=== PATIENT | female | born 1970 ===

== ENCOUNTER → 2016-09-26 | Outpatient (CLI) | payer OTHER ==
[2016-09-26 09:09] LABS: Basophils % (A) 1 %; CH 31.3; Eosinophils # (A) 0.1 k/uL (0-0.7); Eosinophils % (A) 2 %; HCT 41.6 % (34.0-46.0); HDW 2.32; Luc # (Auto) 0.17; Luc % (Auto) 2; Lymphocytes % (A) 13 %; MCHC 33.6 g/dL (31.0-37.0); MCV 95.3 fL (80.0-100.0); Mean Platelet Volume 6.4; Monocytes # (A) 0.4 k/uL (0-1.0); Monocytes % (A) 6 %; Neutrophils # (A) 5.6 k/uL (1.3-7.7); Neutrophils % (A) 77 %; RBC 4.37 m/uL (3.80-5.40); WBC 7.2 k/uL (3.8-10.6); WBC (Perox) 7.59
== END | disposition home or self-care (01) ==
LOC: LABPAT 08:05
PROVIDERS: ATTEND Orthopaedic Surgery
DX: Z01.818 Encounter for other preprocedural examination (principal); G56.01 Carpal tunnel syndrome, right upper limb
CPT/HCPCS: 85025

== ENCOUNTER 2016-09-29 09:58 | Day surgery (SDC) | payer OTHER ==
[2016-09-28 08:21] VITALS: BMI 38.7
--- NOTE | 2016-09-28 09:51 | HP ---
DATE OF ADMISSION: CHIEF COMPLAINT: Right hand pain and numbness. HISTORY OF PRESENT ILLNESS: The patient is a 46-year-old, right-hand dominant female who presents with progressive right hand pain and numbness for the past several years. 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 She is having night symptoms. She has tried bracing and medications without much relief. PAST MEDICAL HISTORY: Significant for rheumatoid arthritis, COPD, multiple sclerosis. PAST SURGICAL HISTORY: Significant for previous knee surgery, left carpal tunnel release, tubal ligation, and tonsillectomy. CURRENT MEDICATIONS: Methotrexate, gabapentin, meclizine, propranolol. She has allergies to SULFA and COPAXONE. FAMILY HISTORY: Significant for cancer and heart disease. SOCIAL HISTORY: Significant for 1-1/2 packs per day tobacco use. Sixteen-point review of systems otherwise reviewed and is noncontributory. On examination, the patient is approximately 5 feet 6 inches, 250 pounds of endomorphic habitus. HEENT exam is nonfocal. Neck is supple. She is nontender about the right shoulder and elbow. On examination of her right wrist, she has a positive Tinel's over the carpal canal. She has a positive carpal tunnel compression test. Abductor pollicis brevis strength is 4+/5. Light touch is mildly diminished in the thumb, index, middle and ring fingers. Capillary refill is less than 2 seconds throughout the digits. EMG report, right upper extremity 08/22/2016 shows severe carpal tunnel syndrome. IMPRESSION: 1. Right carpal tunnel syndrome, symptomatic. 2. History of multiple sclerosis. RECOMMENDATIONS: I talked to the patient at length regarding her treatment options. At this point, she remains quite symptomatic despite conservative measures. After thorough discussion, she opts to proceed with surgery. We will plan to proceed with right carpal tunnel release. We will likely perform that utilizing local anesthetic and IV sedation. The risks and benefits are discussed at length in layman's terms.
[~2016-09-29 09:58] MED LIST: DEXAMETHASONE SOD PHOSPHATE 10 MG/ML 1 ML VIAL IV ONE; HYDROmorphone 1 MG/ML 1 ML SYRINGE IVP PRN; LACTATED RINGERS 1,000 ML IV SCH; MIDAZOLAM 2 MG/2 ML VIAL IV PRN; ONDANSETRON 4 MG/2 ML VIAL IVP ONE; SCOPOLAMINE 1.5MG/72HR PATCH TRANSDERM ONE; ceFAZolin 2 GM in SODIUM CHLORIDE 0.9% 100 ML IVPB ONE
[2016-09-29 11:41] VITALS: RESP 16; TEMP 98
[2016-09-29] MEDS ORDERED: LIDOCAINE 1% 20 ML VIAL (10MG/ML) FOR IV START INTRADERMA ONE (11:41)
[2016-09-29 11:46] LABS: Glucose,Whole Blood 94 mg/dL (75-99)
[2016-09-29] MEDS ORDERED: LIDOCAINE 1% INJ 10MG/ML (20 ML MDV) ONE (12:37)
[2016-09-29] MEDS ORDERED: fentaNYL (PF) 50 MCG/ML 2 ML AMP ONE (12:37)
[2016-09-29] MEDS ORDERED: MIDAZOLAM 2 MG/2 ML VIAL ONE (12:37)
[2016-09-29] MEDS ORDERED: PROPOFOL 10 MG/ML 20 ML VIAL IV ONE (12:37)
[2016-09-29] MEDS ORDERED: BUPIVACAINE (PF) 0.25% 30 ML VIAL SQ ONE (12:47)
--- NOTE | 2016-09-29 13:07 | P.OP ---
Date of Procedure: 09/29/16 Preoperative Diagnosis: Right carpal tunnel syndrome Postoperative Diagnosis: Same Procedure(s) Performed: Right carpal tunnel release Anesthesia: MAC, local Surgeon: Jake Terry Estimated Blood Loss (ml): 2 Pathology: none sent Condition: stable Disposition: PACU Indications for Procedure: The patient's a 46-year-old female who presents with progressive right hand pain and numbness secondary to carpal tunnel syndrome despite conservative measures. A discussion of the risks and benefits of operative intervention versus continued conservative measures was made with the patient. She opted to proceed with surgery. Operative risks to include infection, neurovascular injury, development of blood clots, possible incomplete resolution of symptoms, possible recurrence of symptoms and need for subsequent procedures was discussed. Informed consent was obtained. Operative Findings: as below Description of Procedure: The patient was brought to the operating room, and after induction of IV sedation the right upper extremity was prepped and draped in a normal fashion. The tourniquet was inflated to 250 mmHg. The proposed incision site was outlined with a skin marker in line with the radial aspect the fourth ray extending from the volar wrist crease distally 3 cm. 10 mL of quarter percent plain Marcaine was injected in the proposed incision site. The skin was then incised sharply. The subcutaneous tissues were divided sharply. Electrocautery was used for hemostasis. The superficial palmar fascia was identified and split in line with the skin incision. The transverse carpal ligament was identified and transected under direct visualization distally to level of the palmar fat pad. Proximally it was taken to the level of the volar wrist crease. A plane above and below the transverse carpal ligament was then developed Kwame with tenotomies. The confluence of the distal forearm fascia and the transverse carpal ligament was then transected under direct visualization with the tines pointed in the ulnar direction. I felt I had adequate release. Neural lysis was not performed. The wound was irrigated with normal saline. The skin was reapproximated with simple 3-0 nylon sutures. A sterile dressing was applied. The tourniquet was deflated with less than 15 minutes total tourniquet time. The patient was awoken from sedation and transferred to recovery room in good condition. Blood loss was estimated at 2 mL. No complications were incurred. Sponge and needle counts were correct at the end the case.
[2016-09-29] MEDS ORDERED: HYDROcodone/APAP 5-325MG 1 EACH TAB PO ONE (13:55)
[2016-09-29 14:38] VITALS: BP 107/68; PULSE 45
== END 2016-09-29 15:00 | disposition home or self-care (01) ==
LOC: OR 09:58
PROVIDERS: ATTEND Orthopaedic Surgery
DX: G56.01 Carpal tunnel syndrome, right upper limb (principal); G35 Multiple sclerosis; M06.9 Rheumatoid arthritis, unspecified; J44.9 Chronic obstructive pulmonary disease, unspecified; Z79.899 Other long term (current) drug therapy; Z88.2 Allergy status to sulfonamides; Z88.8 Allergy status to other drugs, medicaments and biological substances; F17.200 Nicotine dependence, unspecified, uncomplicated
CPT/HCPCS: 64721; J2250; J1100; J0690; J2405; J2001; J3010; J2704